=== PATIENT | female | born 1960 | race Caucasian/White ===

== ENCOUNTER 2018-10-10 07:54 | Day surgery (SDC) | payer MEDICAID ==
[~2018-10-10] VITALS: Ht 157.5 cm; Wt 89.5 kg
[~2018-10-10 07:54] MED LIST: CHOL500062 PO; PANT40TA25 PO; SODIUM CHLORIDE 0.9% 1,000 ML IV ONE
[2018-10-10] MEDS: SODIUM CHLORIDE 0.9% 1,000 ML IV ONE (08:39)
[2018-10-10] MEDS ORDERED: PROPOFOL 1% 20 ML VIAL IVP ONE (12:00)
[2018-10-10] MEDS ORDERED: LIDOCAINE/PF 2% 5 ML VIAL INJ ONE (12:00)
== END 2018-10-10 12:15 | disposition home or self-care (01) ==
LOC: SURGERY 07:54
PROVIDERS: ATTEND Internal Medicine Gastroenterology
DX: K29.50 Unspecified chronic gastritis without bleeding (principal); D64.9 Anemia, unspecified; Z87.11 Personal history of peptic ulcer disease; Z79.899 Other long term (current) drug therapy; Z98.890 Other specified postprocedural states; E66.3 Overweight; Z68.36 Body mass index [BMI] 36.0-36.9, adult; Z72.89 Other problems related to lifestyle
CPT/HCPCS: 43239; 88307; 88312; C1769; J2704; J3490; J7030